=== PATIENT | female | born 1990 | race Caucasian/White ===

== ENCOUNTER 2020-07-12 12:53 | Outpatient (REF) | payer OTHER, SELFPAY ==
--- NOTE | 2020-07-12 13:00 | MR_ITS ---
EXAMINATION: MR BRAIN WITHOUT AND WITH CONTRAST CLINICAL INFORMATION: Dizziness and vertigo. COMPARISON: None. TECHNIQUE: Multiplanar, multisequence imaging of the brain was performed before and after the intravenous administration of 7.5 mL of Gadavist. FINDINGS: No diffusion abnormalities are identified to suggest an acute or subacute infarct. The ventricles are normal in size. No mass effect or midline shift is seen. No brain parenchymal signal abnormality is noted. No extra-axial fluid collections are seen. The brainstem and cerebellum are normal. On postcontrast imaging, there is no abnormal parenchymal or leptomeningeal enhancement. The gradient refocused acquisition demonstrates no pathologic magnetic susceptibility artifact to indicate underlying acute or chronic blood products. The craniovertebral junction, marrow signal, and midline structures are normal. The major intracranial flow voids at the level of the upper [place] are preserved. The dural venous sinus flow voids are maintained. The mastoid air cells and paranasal sinuses are well aerated. IMPRESSION: Normal MRI of the brain. No acute process.
== END 2020-07-12 12:54 | disposition home or self-care (01) ==
LOC: HO.MRI 12:53
PROVIDERS: Visit Provider Psychiatry & Neurology Neurology
DX: R42 Dizziness and giddiness (principal)
CPT/HCPCS: 70553

== ENCOUNTER → 2025-05-18 23:59 | Outpatient (BNV) | payer OTHER, SELFPAY | PROVIDERS: PCP Internal Medicine; Visit Provider Psychiatry & Neurology Neurology | DX: M48.02 Spinal stenosis, cervical region (principal) | CPT/HCPCS: 95886; 95912 ==

== ENCOUNTER 2025-09-23 16:27 | Outpatient (AMB) | payer OTHER, SELFPAY ==
--- OUTSIDE RECORDS SUMMARY | 2025-09-22 17:30 | XMS_ITS | Encounter Summary ---
Author Organization [facility] Address [address] [place] [address] Care Team Providers Care Inserter Name Role Phone Petra Gonzalez MD Primary Care Provider Reason for Visit * Reason Comments Rash Encounter Details Date Type Department Care Team ([facility] Contact Info) Description 09/22/2025 5:30 PM EST Office Visit Walk-In Clinic - [facility] [address], [place] [phone] Ruth Weiner NP [address], [place] Scabies exposure (Primary Dx) Social History Tobacco Use Types Packs/Day Years Used Date Smoking Tobacco: Former Cigarettes 0.3 Q uit: 03/04/2013 Smokeless Tobacco: Never Alcohol Use Standard Drinks/Week Comments Yes 0 (1 standard drink = 0.6 oz pur e alcohol) Rare Housing Instability Answer Date Recorde d Are you worried that in the next 2 months you may not have stable housing? No 01/28/2025 Food Access & Nutrition Answer Date Rec orded Do you have access to a vari ety of food including fruits and vegetables? No 01/28/2025 Access to Healthcare Answer Date Record ed Within the last 3 months, ho w many times did you visit the emergency department for your medical care? 0 01/28/2025 Health Literacy Answer Date Recorded How often do you need to hav e someone help you when you read instructions, pamphlets, or other written material from your doctor or pharmacy? Never 01/28/2025 Caregiver: How often do you need to have someone help you when you read instructions, pamphlets, or other written material from your doctor or pharmacy? Not on file 01/28/2025 Financial Risk Answer Date Recorded How hard is it for you to pa y for the very basics like food, housing, medical care, and air conditioning / heating? Not asked 01/28/2025 Transportation Answer Date Recorded Has the lack of transportati on kept you from meetings, work, or from getting things needed for daily living? No Has the lack of transportati on kept you from medical appointments or from getting medications? No 01/28/2025 Social Isolation Answer Date Recorded How often do you feel lonely or isolated from ose around you? Never 01/28/2025 Food Risk Answer Date Recorded Within the past 12 months we worried whether our food would run out before we got money to buy more. Never true 01/28/2025 Within the past 12 months th e food we bought just didn't last and we didn't have money to get more. Never true 01/28/2025 Dependent Care Answer Date Recorded Do you need help finding or paying for care for your loved ones. For example, housekeeper child care or elderly care for an older adult? No 01/28/2025 Education Answer Date Recorded Do you think completing more education or training, like finishing a GED, going to college, or learning a trade, would be helpful for you? N/A 01/28/2025 Employment and Income Answer Date Recor ded During the last four weeks, have you been actively looking for work? Patient declined 01/28/2025 Living Situation Answer Date Recorded What is your living situation? Unrecognized valu e 01/28/2025 Comments No Sex and Gender Information Value Date Recorded Sex Assigned at Female 07/05/2025 11:59 AM EDT Legal Sex Female 8:18 PM EST Gender Identity Female 07/05/2025 11:59 AM EDT Sexual Orientation Straight 07/05/2025 11 :59 AM EDT documented as of this encounter Last Filed Vital Signs Vital Sign Reading Time Taken Comments Blood Pressure 100/52 09/22/2025 5:43 PM EST Pulse 70 09/22/2025 5:43 PM EST Temperature 36.4 C (97.6 F) 09/22/2025 5:43 PM EST Respiratory Rate - - Oxygen Saturation 98% 09/22/2025 5:43 PM EST Inhaled Oxygen Concentration - - Weight - - Height - - Body Mass Index - - documented in this encounter Ordered Prescriptions Prescription Sig Dispense Quantity Refills Last Filled Start Date End Date permethrin (ELIMITE) 5 % cream Apply to skin from hairline to toes and wash off 8-10 hours later. 60 g 09/22/2025 documented in this encounter Progress Notes * Ruth Weiner NP - 09/22/2025 5:30 PM EST CHIEF COMPLAINT: Rash HPI: Angela Crowder is a 34 y.o. old female who has been volunteering at a shelter who has a recent outbreak of scabies. Patient now with rash on the left lower abdomen. Patient states she is not has an IUD in place ROS: Remainder of the 12 point review of symptoms unremarkable except for those idenitified in the HPI. PAST MEDICAL HISTORY: Patient Active Problem List Diagnosis Date Noted Neck pain 01/08/2025 Chronic midline low back pain without sciatica 01/08/2025 Aortic valve disorder 08/11/2024 ASD (atrial septal defect) 08/11/2024 Migraines 08/11/2024 Opioid dependence in remission ([facility] V24, [facility] V28) 06/22/2022 Acne 10/17/2020 Leg pain 03/18/2013 Asthma 12/26/2012 Attention deficit hyperactivity disorder (ADHD) 12/26/2012 Seizure ([facility] V24, [facility] V28) 12/26/2012 Surgical History[1] SOCIAL HISTORY: Social History Tobacco Use Smoking status: Former Current packs/day: 0.00 Average packs/day: 0.3 packs/day Types: Cigarettes Quit date: 03/04/2013 Years since quittin.5 Smokeless tobacco: Never Substance Use Topics Alcohol use: Yes Comment: Rare FAMILY HISTORY: Family History[2] Family Status Relation Name Status Mother Leigh crowder Alive Father Fritz crowder Alive Sister Alive MGM Malia crowder MGF PGM PGF Pat Aunt Lindsay aneesh (Not Specified) No partnership data on file MEDICATIONS DISCONTINUED/REORDERED: There are no discontinued medications. ACTIVE MEDICATIONS: Medications Taking[3] ALLERGIES: Allergies[4] PHYSICAL EXAM: Vitals: 09/22/25 1743 BP: 100/52 Pulse: 70 Temp: 36.4 ??C (97.6 ??F) SpO2: 98% CONSTITUTIONAL: alert, calm, cooperative, in no acute distress SKIN: warm and dry small red bumps lower left abdomen no tracking not pruritic HEART: S1, S2 normal, regular rate and rhythm, no murmurs, rubs, gallops LUNGS: clear to auscultation bilaterally, no wheezes, rales, rhonchi PSYCH: mood/affect full range, speech clear, good eye contact, cooperative with exam LABS/IMAGING: IMPRESSION: Scabies exposure PLAN: The patient's PMH, problem list and medications were reviewed in reference to the above diagnosis/diagnoses. Elimite sent to pharmacy apply tonight and shower in a.m. Patient aware to strip bed in the a.m. wash bedding in hot water Advised to follow up with PCP if symptoms do not improve. Advised to follow up with UC or PCP immediately for new or worsening symptoms. Educated on red flags symptoms. Advised to go to the ER or call 911 for these symptoms. Patient understands the plan. Patient verbalizes agreement with the plan. No orders of the defined types were placed in this encounter. Ruth Weiner NP on 09/22/2025 at 5:45 PM EST Today's documentation was made using voice recognition software. This note may contain grammatical errors secondary to this software. [1] Past Surgical History: Procedure Laterality Date CARDIAC SURGERY 1996 PROCEDURE: HISTORICAL HEART SURGERY(ASD,VSD,VALVES) [2] Family History Problem Relation Name Age of Onset Squamous cell carcinoma Mother Leigh crowder Arthritis Mother Leigh crowder Rheum arthritis Mother Leigh crowder Arthritis Father Fritz crowder Polycystic ovary syndrome Sister COPD Maternal Grandmother Malia crowder Ovarian cancer Father's Sister Lindsay melendrez [3] Outpatient Medications Marked as Taking for the 09/22/25 encounter (Office Visit) with Ruth Weiner NP Medication Sig Dispense Refill acyclovir (ZOVIRAX) 400 mg tablet TAKE ONE TABLET BY MOUTH THREE TIMES A DAY 15 tablet 2 aspirin 81 mg EC tablet Take 81 mg by mouth daily. benzoyl peroxide 5 % gel Mix with clindagmycin gel and apply wice daily to cleansed face buprenorphine (Sublocade) 100 mg/0.5 mL ER injection Inject 100 mg into the skin every 30 days. tugcvklqcc-byvstrjndekhm-wcoyxlbl (FIORICET, ESGIC) 50-325-40 mg per tablet Take 1 tablet by mouth 1 (one) time each day if needed. cetirizine-pseudoephedrine (ZyrTEC-D) 5-120 mg per 12 hr tablet Take 1 tablet by mouth 2 (two) times a day. 60 each 0 clindamycin phosphate 1 % gel, once daily Mix with benzoyl peroxide gel and apply small amount to cleansed face BID erenumab-aooe (Aimovig Autoinjector) 140 mg/mL injection Inject into the skin. Q4ws per neuro for migraines fluticasone propionate (FLONASE) 50 mcg/actuation nasal spray Administer 2 sprays into each nostril1 (one) time each day. Shake gently. Before first use, prime pump. After use, clean tip and replacecap. 16 g 0 levonorgestreL (MIRENA) 21 mcg/24hr (up to 8 yrs) 52 mg IUD 1 Device (1 each total) by intrauterineroute 1 (one) time. nystatin-triamcinolone (MYCOLOG II) ointment 3-4x/day to affected area 15 g 0 [4] Allergies Allergen Reactions Prednisone Swelling documented in this encounter Plan of Treatment Upcoming Encounters Date Type Department Care Team (Late st Contact Info) Description 02/04/2026 3:45 PM EDT Office Visit Adult Medicine - [address] [phone] Petra Gonzalez MD [address] [place], [place] [id number] documented as of this encounter Goals Goal Patient Goal Type Associated Problems Recent Progress Patient-Stated? Author PT LTGs General No Jon Moeller, PT Note: Pt will report no cervical, upper trap pain for first 4 hours of work day - not met Pt will be independent with HEP - MET Pt will complete deadlift motion with cable machine against 45 lb of resistance - not met documented as of this encounter Visit Diagnoses Diagnosis Scabies exposure- Primary documented in this encounter Additional Health Concerns Assessment Noted Time PHQ-9 Depression Total Score: 0 01/30/20 25 3:28 PM EDT documented as of this encounter Care Teams Inserter Relationship Specialty Start Date End Date Petra Gonzalez MD [address] [place] [address] PCP - General 01/21/24 documented as of this encounter
--- NOTE | 2025-09-23 16:31 | A.OFFVIS_ITS ---
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 Migraine was not responsive to multiple meds and many she could not take due to her cardiac condition. Aimovig was helping to reduce frequency and severity of headaches. Her quality of life improved. Before Aimovig, she was having about 15-20 headaches a month. She was doing okay. Migraines were much better with Aimovig. Butalbital as needed helped.?Sleep was okay. 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 Review of Systems Const Denies chills, Denies daytime sleepiness, Denies difficulty sleeping, Denies fatigue, Denies fever(s), Denies frequent falls, Reports headache(s), Denies increased appetite, Denies poor appetite, Denies snoring, Denies weakness, Denies weight gain and Denies weight loss Eyes Denies loss of vision ENT Denies vertigo, Denies dizziness and Reports headache(s) Card Denies chest pain at rest, Denies chest pain with activity, Denies syncope, Denies leg edema and Denies palpitations Resp Denies snoring GI Denies constipation, Denies heartburn, Denies diarrhea and Denies nausea Denies urinary frequency, Denies urinary incontinence and Denies urinary urgency Musc Denies abnormal gait, Denies numbness and Denies tingling Skin/Breast Denies dry skin and Denies rash Neuro Denies abnormal gait, Denies vertigo, Denies dizziness, Denies syncope, Denies frequent falls, Reports headache(s), Denies lack of coordination, Denies loss of vision, Denies memory loss, Denies numbness, Denies restless legs, Denies seizure-like activity, Denies tingling, Denies paresthesias, Denies tremor(s) and Denies weakness Psych Denies anxiety, Denies depression, Denies auditory hallucinations, Denies memory loss, Denies visual hallucinations and Denies suicidal ideation Endo Denies fatigue and Denies palpitations Physical Exam Const Other: General Appearance:? normal, in no acute distress. Skin:? no rashes, no significant birthmarks. Heart:? S1, S2 normal, no murmurs. Lungs:? clear anteriorly and posteriorly. Extremities:? no edema. Psych:? alert, oriented, cognitive function intact, cooperative with exam. Neuro Other: Mental Status:?Normal attention, orientation, memory and affect.? Cranial Nerves:?Pupils are equal, round and reactive to light. External occular muscles are intact. Visual escalera are full. Face is symmetrical. Facial sensations are normal. Tongue is midline. Palate elevates symmetrically. Shoulder shrugging is normal. Hearing to bedside conversation is normal. Sensory Exam:?....? Coordination:?No ataxia,?no titubation.? Gait Exam: Within normal limits. Extrapyramidal System:?No tremor, rigidity with normal facial expressions.? Pronator Drift:?Not present.? Involuntary Movements:?No tremors seen.? Speech:?Normal.? Results Reviewed Results Reviewed: MRI brain [facility] at [facility] in Jul 2020: WNL Assessment & Plan Assessment & Plan (1) Migraine with aura: Code(s): G43.109 - Migraine with aura, not intractable, without status migrainosus Category: Medical Qualifiers: Status migrainosus presence: without status migrainosus Intractability: not intractable Qualified Code(s): G43.109 - Migraine with aura, not intractable, without status migrainosus Plan: Continue Aimovig Auto-injector 140mg/mL subcutaneous monthly. Continue mrxoqaulnn-VWQM-jfaw 50-325-40mg 1-2 tablets as needed for headache #10 for 30 days. Continue meclizine 12.5mg 1 tablet as needed for dizziness #30 for 30 days. Follow up in 6 months or sooner as needed. Plan Meds tried: amitryptiline, Fiorecet, Excedrin, Tylenol, Aleve, Ibuprufen, topiramate, propranalol, emgality, Tripatans are contraindicated, Coding Level of Care Code Est Pt Level 4 (34869) Diagnoses Migraine with aura and without status migrainosus, not intractable G43.109 Status migrainosus presence: without status migrainosus Intractability: not intractable
--- OUTSIDE RECORDS SUMMARY | 2025-09-23 19:43 | XMS_ITS | Clinical Summary ---
Author Organization [facility] Address [address] [place] [address] Care Team Providers Care Resident Program Specialist Name Role Phone Unavailable Primary Care Provider Unavailabl e Source Comments Please note that some or all of the patient's information could have additional privacy protections. State laws allow health care providers to render certain types of treatment to minors without parental consent. Please do not assume that this information can be shared solely by obtaining just the consent of the patient's parent/guardian. Please determine if all or part of the patient's care was rendered without parent/guardian involvement. And, if so, obtain the minor's consent prior to disclosure.[facility] Social History Tobacco Use Types Packs/Day Years Used Date Smoking Tobacco: Never Assessed Comments Unknown Sex and Gender Information Value Date Recorded Sex Assigned at Not on file Legal Sex Female 2:14 AM EST Gender Identity Not on file Sexual Orientation Not on file Plan of Treatment Not on file Insurance [address] [place] [address] [employer]
--- OUTSIDE RECORDS SUMMARY | 2025-09-23 19:43 | XMS_ITS | Clinical Summary ---
Author Organization [facility] Address [address] [place] [address] Phone Care Team Providers Care Cartoon Artist Name Role Phone Petra Gonzalez MD Primary Care Provider Allergies Active Allergy Reactions Criticality Noted Date Comments Prednisone Swelling 01/08/2025 Medications erenumab-aooe (Aimovig Autoinjector) 140 mg/mL injection Inject into the skin. Q4ws per neuro for migraines 07/27/20 24 Active buprenorphine (Sublocade) 100 mg/0.5 mL ER injection Inject 100 mg into the skin every 30 days. Active clindamycin phosphate 1 % gel, once daily Mix with benzoyl peroxide gel and apply small amount to cleansed face BID 03/21/20 21 Active benzoyl peroxide 5 % gel Mix with clindagmycin gel and apply wice daily to cleansed face 03/21/20 21 Active butalbital-anthony taminophen-caf feine (FIORICET, ESGIC) 50-325-40 mg per tablet Take 1 tablet by mouth 1 (one) time each day if needed. Active aspirin 81 mg EC tablet Take 81 mg by mouth daily. Active nystatin-triam cinolone (MYCOLOG II) ointment 3-4x/day to affected area 15 g 02/18/20 25 Active cetirizine-pse udoephedrine (ZyrTEC-D) 5-120 mg per 12 hr tablet Take 1 tablet by mouth 2 (two) times a day. 60 each 03/05/20 25 Active fluticasone propionate (FLONASE) 50 mcg/actuation nasal spray Administer 2 sprays into each nostril 1 (one) time each day. Shake gently. Before first use, prime pump. After use, clean tip and replace cap. 16 g 03/05/20 25 Active levonorgestreL (MIRENA) 21 mcg/24hr (up to 8 yrs) 52 mg IUD 1 Device (1 each total) by intrauterine route 1 (one) time. Active acyclovir (ZOVIRAX) 400 mg tablet TAKE ONE TABLET BY MOUTH THREE TIMES A DAY 15 tablet 2 09/07/20 25 Active permethrin (ELIMITE) 5 % cream Apply to skin from hairline to toes and wash off 8-10 hours later. 60 g 09/22/20 25 025 Active acyclovir (ZOVIRAX) 400 mg tablet Take 1 tablet (400 mg total) by mouth if needed. 09/05/20 24 025 Discontinued nirmatrelvir-r itonavir (Paxlovid) 300 mg (150 mg x 2)-100 mg tablet therapy pack Take 3 tablets by mouth every 12 (twelve) hours for 5 days. Take number of ordered nirmatrelvir (300 mg = 2 tablets) and ritonavir (100 mg = 1 tablet) tablets at the same time. 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 Zamroa Pt [facility]- 11/18-does not need prophylaxis per dr perez note.no surgery Migraines 08/11/2024 Overview (08/11/2024): 04/19-Unremarkable MRI of the brain Seen by neuro Opioid dependence in remission 06/22/2022 Acne 10/17/2020 Leg pain 03/18/2013 Overview (08/11/2024): Sclerotic lesion on xray of rt tibia.neos said they will follow Asthma 12/26/2012 Attention deficit hyperactivity disorder (ADHD) 12/26/2012 Overview (08/11/2024): Was on ritalin by previous pcp dr gregg [facility] [address], [place] Seizure 12/26/2012 Encounters Date Type Department Care Team Description 09/22/2025 5:30 PM EST Office Visit [facility] [address] [place] [address] Ruth Weiner NP Scabies exposure (Primary Dx) 08/21/2025 1:30 PM EST [facility] [address] [place] [address] Dalton Hill PA Sinus symptom (Primary Dx); COVID 07/01/2025 3:30 PM EDT Consult Orthopedic Surgery - [place] [address] [place] [id number] Estefany Darnell PA 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); Arthritis 06/24/2025 10:30 AM EDT [facility] [address] [place] [address] Oral Song PA Sore throat (viral) (Primary Dx) from Last 3 Months Immunizations Immunization Administration Dates Next Due Hepatitis B Pediatric (Enger ix B; Recombivax HB) to less than 20 yo 09/06/1993,01/04/1993,1992 Influenza Quadravalent, MDCK , 0.5ml, preservative free (Flucelvax) 6mo and older 2023,12/25/2021,10/17/2020 Influenza Whole 09/04/2016 Influenza trivalent, 0.5mL, preservative free (Fluarix; FluLaval; Fluzone) ages 6mo and older (Afluria) 3 years and older 07/27/2024 Influenza, Unspecified 09/04/2016 MMR, measles mumps and rubel la Live (Priorix; M-M-R II) 12mo and older 12/07/1997,03/12/1994 Meningococcal MCV4P 04/04/2007 PPD Test 01/12/2014,08/27/2011 Food Runner SARS-CoV-2 COVID-19, mRNA, LNP-S, preservative free 10/30/2021,10/21/2021,2020,11/14 Td Tetanus diptheria (Tdvax) 7yo and older 03/23/2019 Tdap Tetanus diptheria acell ular pertussis (Boostrix; Adacel) 7yo and older 04/05/2008 Varicella live (Varivax) 12m o and older 10/07/1994 Surgical History Surgery Date Site/Laterality Comments CARDIAC SURGERY 1996 PROCEDURE: HISTORICAL HEART SURGERY(ASD,VSD,VALVES) Medical History Medical History Date Comments ASD (atrial septal defect) DX: D (atrial septal defect); COMMENT: repaired [address] Zamora Aortic valve disorders DX:Aortic valve disorders Migraines DX:Migraines MRSA cellulitis DX:MRSA cellulit is Family History Medical History Relation Name Comments Arthritis Father Fritz hooker Ovarian cancer Father's Sister Lindsay melendrez COPD Maternal Grandmother Malia hooker Arthritis Mother Leigh hooker Rheum arthritis Mother Leigh hooker Squamous cell carcinoma Mother Leigh hooker Polycystic ovary syndrome Sister Relation Name Status Comments Father Fritz hooker Alive Father's Sister Lindsay melendrez Maternal Grandfather Maternal Grandmother Malia hooker Mother Leigh hooker Alive Paternal Grandfather Paternal Grandmother Sister Alive Social History Tobacco Use Types Packs/Day Years Used Date Smoking Tobacco: Former Cigarettes 0.3 Q uit: 03/04/2013 Smokeless Tobacco: Never Tobacco Cessation:Counseling Given: Not Answered Alcohol Use Standard Drinks/Week Comments Yes 0 [...] do you feel lonely or isolated from th ose around you? Never 01/28/2025 Food Risk [...] care for your loved ones. For example, child specialist or elderly care for an older adult? [...] Orientation Straight 07/05/2025 11 :59 AM EDT Last Filed Vital Signs Vital Sign Reading Time Taken Comments Blood Pressure 100/52 09/22/2025 5:43 PM EST Pulse 70 09/22/2025 5:43 PM EST Temperature 36.4 C (97.6 F) 09/22/2025 5:43 PM EST Respiratory Rate - - Oxygen Saturation 98% 09/22/2025 5:43 PM EST Inhaled Oxygen Concentration - - Weight 74.4 kg (164 lb) 05/05/2025 1:21 PM EDT Height 175.3 cm (5' 9 ) 05/05/2025 1:21 PM EDT Body Mass Index 24.22 05/05/2025 1:21 PM EDT Plan of Treatment Upcoming Encounters Date Type Department Care Team (Late st Contact Info) Description 02/04/2026 3:45 PM EDT Office Visit Adult Medicine - [place] [address] [place] [address] Petra Gonzalez MD [address] [place] [address] Health Maintenance Due Date Last Done Comments Drug Screen 1992 Non-Opioid Controlled Substance Agreement 1992 Hepatitis A Vaccines (1 of 2 - Risk 2-dose series) 12/06/2011 Pneumococcal Vaccine: Pediatrics (0 to 5 Years) and At-Risk Patients (6 to 49 Years) (1 of 2 - PCV) 12/06/2011 Cervical Cancer Screening: Pap Smear 2013 HPV Vaccines (1 - 3-dose SCDM series) 12/06/2019 HIV Screening 09/08/2022 COVID-19 Vaccine ( season) 2025 10/30/2021, 10/21/2021, 2020, Additional history exists Influenza Vaccine (#1) 2025 , 2023, 12/25/2021, Additional history exists Social Influencers of Health Screening 01/28/2026 01/28/2025 DTaP,Tdap,and Td Vaccines (3 - Td or Tdap) 03/23/2029 03/23/2019, 04/05/2008 Cholesterol Screening (Lipid Panel) 01/29/2030 01/29/2025, 11/15/2023 RSV Immunization Adult Patients (1 - 1-dose 75+ series) 12/06/2067 Hepatitis B Vaccines Completed 09/06/1993, 01/04/1993, 1992 Varicella Vaccines Aged Out 10/07/1994 No longer eligible based on patient's age to complete this topic MMR Vaccines Completed 12/07/1997, 03/12/1994 Meningococcal ACWY Vaccine Aged Out 04/04/2007 N o longer eligible based on patient's age to complete this topic Hepatitis C Screening Completed 03/23/2019 Depression Screening Completed 01/29/2025, 01/15/20 HIB Vaccines Aged Out No longer eligi ble based on patient's age to complete this topic IPV Vaccines Aged Out No longer eligi ble based on patient's age to complete this topic Meningococcal B Vaccine Aged Out No l onger eligible based on patient's age to complete this topic RSV Immunization Patients Under 20 months Aged Out No longer eligible based on patient's age to complete this topic Goals Goal Patient Goal Type Associated Problems Recent Progress Patient-Stated? 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 RHEUMATOID FACTOR Routine 07/01/2025 3:5 5 PM EDT 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 CBC AND DIFFERENTIAL Routine 07/01/2025 3:55 PM EDT 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 C-REACTIVE PROTEIN Routine 07/01/2025 3: 55 PM EDT 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 POC RAPID STREP A Routine 06/24/2025 2:5 2 PM EDT Sore throat (viral) POC RAPID [id number], MOLECULAR Routine 06/24/2025 2:51 PM EDT Sore throat (viral) CULTURE THROAT Routine 06/24/2025 11:12 AM EDT Sore throat (viral) LIPID PANEL WITH REFLEX TO DIRECT LDL Routine 01/29/2025 4:08 PM EDT Adult general medical examination DEPRESSION SCREENING Routine 01/15/2024 HEPATITIS C SCREENING Routine 03/23/2019 from Last 3 Months or Most Recently Relevant to Health Maintenance Results * (ABNORMAL) Poc Rapid [id number], MOLECULAR (08/21/2025 2:00 PM EST) Only the most recent of2 resultswithin the time period is included. COVID-19/SARS- COV-2 Rapid POC Positive(A ) Negative Swab Nasopharyngeal structure / Unknown 08/21/2025 2:00 PM EST Dalton GAMEZ POINT OF CARE TEST ENTER/EDIT OR DERABLES Edited Result - Final * CBC auto differential (07/01/2025 3:55 PM EDT) WBC 7.8 4.8 - 10.8 K/mcL LAB HEMETOLOGY METHOD 07/01/2025 6:12 PM EDT [facility] RBC 4.30 3.80 - 4.80 M/mcL LAB HEMETOLOGY METHOD 07/01/2025 6:12 PM EDT [facility] Hemoglobin 12.9 11.5 - 16.0 g/dL LAB HEMETOLOGY METHOD [facility]/01[facility]2025 6[facility] Hematocrit 38.7 35.0 - 47.0 % LAB HEMETOLOGY METHOD 07/01/2025 6:12 PM EDT [facility] MCV 89.8 79.0 - 98.0 FL LAB HEMETOLOGY METHOD 07/01/2025 6:12 PM EDT [facility] MCH 29.9 27.0 - 32.0 pcg LAB HEMETOLOGY METHOD 07/01/2025 6:12 [facility] MCHC 33.3 32.0 - 37.0 g/dL LAB HEMETOLOGY METHOD 07/01/2025 6:12 PM EDT [facility] RDW 11.7 11.0 - 15.0 % LAB HEMETOLOGY METHOD 07/01/2025 6:12 [facility] Platelets 246 130 - 400 K/mcL LAB HEMETOLOGY METHOD 07/01/2025 6:12 [facility] MPV 9.7 7.0 - 11.0 FL LAB HEMETOLOGY METHOD 07/01/2025 6:12 PM EDT [facility] NRBC 0.0 <1.0 % LAB HEMETOLOGY METHOD 07/01/2025 6:12 PM EDT [facility] NRBC Absolute 0.00 <0.10 K/mcL LAB HEMETOLOGY METHOD 07/01/2025 6:12 PM [facility] Neutrophils Relative 62.2 % LAB HEMETOLOGY METHOD 07/01/2025 6:12 PM EDT [facility] Lymphocytes Relative 28.5 % LAB HEMETOLOGY METHOD 07/01/2025 6:12 PM EDT [facility] Monocytes Relative 5.8 % LAB HEMETOLOGY METHOD 07/01/2025 6:12 PM [facility] Eosinophils Relative 3.0 % LAB HEMETOLOGY METHOD 07/01/2025 6:12 PM [facility] Basophils Relative 0.4 % LAB HEMETOLOGY METHOD 07/01/2025 6:12 PM [facility] Immature Granulocytes Relative 0.1 % LAB HEMETOLOGY METHOD 07/01/2025 6:12 PM [facility] Neutrophils Absolute 4.82 1.50 - 7.00 K/mcL LAB HEMETOLOGY METHOD 07/01/2025 6:12 PM [facility] Lymphocytes Absolute 2.21 1.00 - 5.00 K/mcL LAB HEMETOLOGY METHOD 07/01/2025 6:12 PM EDT [facility] Monocytes Absolute 0.45 0.20 - 1.00 K/mcL LAB HEMETOLOGY METHOD 07/01/2025 6:12 [facility] Eosinophils Absolute 0.23 0.00 - 0.50 K/mcL LAB HEMETOLOGY METHOD 07/01/2025 6:12 PM [facility] Basophils Absolute 0.03 0.00 - 0.20 K/mcL LAB HEMETOLOGY METHOD 07/01/2025 6:12 PM EDT [facility] Immature Granulocytes Absolute 0.01 0.00 - 0.03 K/mcL LAB HEMETOLOGY METHOD 07/01/2025 6:12 PM EDT [facility] Blood Venous blood specimen / Unknown Venipuncture / Unknown 07/01/2025 3:55 PM EDT 07/01/2025 3:55 PM EDT Estefany GAMEZ LAB BLOOD ORDERABLES Final Resu lt Performing Organization Address City/[facility]/ZIP Co de Phone Number [facility] [address] [place] [address], * Rheumatoid factor (07/01/2025 3:55 PM EDT) Rheumatoid Factor <10.0 <15.0 I Unit/mL LAB CHEMISTRY METHOD 07/01/2025 10:40 PM EDT [facility] Blood Venous blood specimen / Unknown Venipuncture / Unknown 07/01/2025 3:55 PM EDT 07/01/2025 3:55 PM EDT Estefany GAMEZ LAB BLOOD ORDERABLES Final Resu lt Performing Organization Address City/[facility]/ZIP Co de Phone Number [facility] [address] [place] [address], [place] [phone] * C-reactive protein (07/01/2025 3:55 PM EDT) C-Reactive Protein <0.29 <=0.50 mg/dL LAB CHEMISTRY METHOD 07/01/2025 10:40 PM EDT [facility] Blood Venous blood specimen / Unknown Venipuncture / Unknown 07/01/2025 3:55 PM EDT 07/01/2025 3:55 PM EDT Estefany GAMEZ LAB BLOOD ORDERABLES Final Resu lt Performing Organization Address [facility]/ZIP Co de Phone Number [facility] [address] [place] [address], [place] [phone] * (ABNORMAL) Uric acid (07/01/2025 3:55 PM EDT) [facility] [address] [facility] Uric Acid 2.8(L) 3.1 - 7.8 mg/dL LAB CHEMISTRY METHOD 07/01/2025 10:40 PM EDT [facility] Blood Venous blood specimen / Unknown Venipuncture / Unknown 07/01/2025 3:55 PM EDT 07/01/2025 3:55 PM EDT us Estefany GAMEZ LAB BLOOD ORDERABLES Final Resu lt Performing Organization Address [facility] Co de Phone Number [facility] [address] [place] [address], [place] [phone] * POC rapid strep A manually resulted (06/24/2025 2:52 PM EDT) [facility] [address] Rapid Strep A Screen POC Negative Negative Internal Control Pass Yes Yes Swab Structure of anterior region of neck / Unknown 06/24/2025 2:52 PM EDT us Oral GAMEZ POINT OF CARE TEST ENTER/E DIT ORDERABLES Final Result * Culture throat (06/24/2025 11:12 AM EDT) [facility] [address] [facility] Culture, Throat No pathogens isolated. 06/26/2025 10:56 AM EDT [facility] Swab Structure of anterior region of neck / Unknown Non-blood Collection / Unknown 06/24/2025 11:12 AM EDT 06/24/2025 11:12 AM EDT us Oral GAMEZ LAB MICROBIOLOGY - GENERAL ORDERABLES Final Result [facility] [address] [place] [address], [place] [phone] * (ABNORMAL) Lipid panel with reflex to direct LDL (01/29/2025 4:08 PM EDT) Cholesterol 200 0 - 200 mg/dL LAB CHEMISTRY METHOD 01/29/2025 5:59 PM EDT [facility] Triglycerides 73 0 - 150 mg/dL LAB CHEMISTRY METHOD 01/29/2025 5:59 PM EDT [facility] HDL 53 >=40 mg/dL LAB CHEMISTRY METHOD 01/29/2025 5:59 PM EDT [facility] LDL Calculated 132(H) 0 - 100 mg/dL LAB CHEMISTRY METHOD 01/29/2025 5:59 PM EDT [facility] VLDL Cholesterol Matthew 14.6 mg/dL LAB CHEMISTRY METHOD 01/29/2025 5:59 PM EDT [facility] Non HDL Chol. (LDL+VLDL) 147(H) <145 mg/dL LAB CHEMISTRY METHOD 01/29/2025 5:59 PM EDT [facility] Chol/HDL Ratio 3.8 0.0 - 4.4 LAB CHEMISTRY METHOD 01/29/2025 5:59 PM EDT [facility] Blood Venous blood specimen / Unknown Venipuncture / Unknown 01/29/2025 4:08 PM EDT 01/29/2025 4:08 PM EDT us Isidro GAMEZ LAB BLOOD ORDERABLES Final Re sult [facility] [address] [place] [address], [place] [phone] * Depression Screening (01/15/2024) Pathologist [facility] Depression Screening abstracted Historical Provider HEALTH MAINTENANCE Final Result * Hepatitis C Screening (03/23/2019) Hepatitis C Screening abstracted us Historical Provider HEALTH MAINTENANCE Final Result from Last 3 Months or Most Recently Relevant to Health Maintenance Insurance [facility] [employer] Care Teams Cartoon Artist Relationship Specialty Start Date End Date Petra Gonzalez MD [facility] [place] [address] PCP - General 01/21/24
--- OUTSIDE RECORDS SUMMARY | 2025-09-23 19:43 | XMS_ITS | Patient Health Record ---
Author Organization [facility] Address [address] [place] [address] Care Team Providers Care Websphere Message Broker Developer Name Role Phone Lucila Talbot Unavailable [phone] Reason For Referral No Information Problems Problem Type SNOMED Code ICD Code Onset Dates Problem Status W/U Status Risk Notes Problem Attention deficit hyperactivity disorder (737852624) Attention deficit disorder of childhood with hyperactivity (314.01) Active confirmed Diag Problem Urinary tract infectious disease (disorder) (55500387) Urinary tract infection, site not specified (599.0) Active confirmed Diag Problem Cyst of ovary (64026743) Other and unspecified ovarian cyst (620.2) Active confirmed Major Problem Gynecological examination normal (036200517997010) Routine gynecological examination (V72.31) Active confirmed Diag Problem Contraception care education (134770550) Other general counseling and advice for contraceptive management (V25.09) Active confirmed Diag Plan Of Treatment No Information Insurance Providers Payer Name Payer Address Payer Phone Subscriber Number Group Number Insured Name Patient Relationship to Insured Coverage Start Date Coverage End Date [facility] [address] [address] [place] [address] [id number] BEN HOOKER Self - patient is the insured
--- OUTSIDE RECORDS SUMMARY | 2025-09-23 19:44 | XMS_ITS | Clinical Summary ---
Author Organization [facility] Address [address] [place] [address] Phone Care Team Providers Care Community Nurse Name Role Phone Napoleon Ban Primary Care Provider [phone] Ban Bender Unavailable Sumit Garcia Unavailable John Aleman MD Unavailable [phone] Phil Hanson MD Unavailable [phone] Medications erenumab (Aimovig Autoinjector) 140 mg/mL injection Dose: 140 mg, Subcutaneous, QMonth, Special Instructions: Last taken 3 weeks from today on December 11, 2023, Entered: 12/25/23 15:13:00 EDT 4 Active ferrous sulfate (FeosoL) 325 mg (65 mg iron) tablet Dose: 325 mg, Dose Amount: 1 tab, PO, BID, Dispense Quantity: 60 tab, Entered: 07/13/13 10:00:59 EDT, Therapy Maintenance 3 Active furosemide (Lasix) 20 mg tablet Dose: 20 mg, Dose Amount: 1 tab, PO, BID, Dispense Quantity: 60 tab, Entered: 07/13/13 8:30:28 EDT, Therapy Maintenance 3 Active furosemide (Lasix) 20 mg tablet Dose: 20 mg, Dose Amount: 1 tab, PO, daily, Dispense Quantity: 30 tab, Refills: 3, Entered: 08/25/13 11:42:31 EST, Therapy Maintenance, [facility] 3 Active Social History Tobacco Use Types Packs/Day Years Used Date Smoking Tobacco: Never Assessed Comments Unknown Sex and Gender Information Value Date Recorded Sex Assigned at Not on file Legal Sex Female 10:03 PM EDT Gender Identity Not on file Sexual Orientation Not on file Last Filed Vital Signs Vital Sign Reading Time Taken Comments Blood Pressure 130/64 12/25/2023 3:03 PM EDT Pulse 78 12/25/2023 3:03 PM EDT Temperature - - Respiratory Rate - - Oxygen Saturation 97% 12/25/2023 3:03 PM EDT Inhaled Oxygen Concentration - - Weight 96.1 kg (211 lb 13.8 oz) 12/25/2023 3:00 PM EDT Height 172 cm (5' 7.72 ) 12/25/2023 3:00 PM EDT Body Mass Index 32.48 12/25/2023 3:00 PM EDT Plan of Treatment Not on file Care Teams Community Nurse Relationship Specialty Start Date End Date Ban Bender [address] [place] [address] PCP - General 10/17/22 Ban Bender [address] [place] [address] PCP - Clinical PCP 11/12/22 Sumit Garcia [address] [place] [phone] PCP - Insurance PCP 03/17/13 John Aleman MD [address] [place] [address] HC CV Surgeon 03/07/24 Phil Hanson MD [address] [place] [address] Nailing Machine Operator Automatic 03/07/24
--- OUTSIDE RECORDS SUMMARY | 2025-09-23 19:44 | XMS_ITS ---
Author Name [facility] Organization Unknown Care Team Organization Name Specialty Phone Email Start Date End Da te [facility] Kadi Amato Primary Care 03/15/2023 05/25/2024 [facility] Ban Bender APRN Primary Care 02/11/2023 05/25/2024 [facility] Harriet Morataya Primary Care 08/14/2022
== END 2025-09-23 16:40 | disposition home or self-care (01) ==
LOC: HO.HSM 16:28
PROVIDERS: PCP Internal Medicine; Referring Provider Internal Medicine; Visit Provider Registered Nurse
DX: G43.109 Migraine with aura, not intractable, without status migrainosus (principal)
CPT/HCPCS: 99214

== ENCOUNTER → 2025-09-23 16:27 | Outpatient (BNVA) | payer OTHER, SELFPAY | PROVIDERS: PCP Internal Medicine; Referring Provider Internal Medicine; Visit Provider Registered Nurse | DX: G43.109 Migraine with aura, not intractable, without status migrainosus (principal); Z79.899 Other long term (current) drug therapy | CPT/HCPCS: 99212 ==